=== PATIENT | female | born 1965 | race Caucasian/White ===

== ENCOUNTER → 2024-06-23 07:43 | Outpatient (REF) | payer BC, SELFPAY | LOC: HWWDC 07:43 | PROVIDERS: ATTENDING PHYSICIAN Obstetrics & Gynecology Gynecology; FAMILY PHYSICIAN Family Medicine | DX: Z78.0 Asymptomatic menopausal state (principal); Z12.31 Encounter for screening mammogram for malignant neoplasm of breast | CPT/HCPCS: 77063; 77067; 77080 ==

== ENCOUNTER 2024-10-03 06:17 | Day surgery (SDC) | payer BC, SELFPAY | END 2024-10-03 10:12 | disposition home or self-care (01) | LOC: GI 06:17 | PROVIDERS: ATTENDING PHYSICIAN Internal Medicine; FAMILY PHYSICIAN Family Medicine | DX: Z12.11 Encounter for screening for malignant neoplasm of colon (principal); D12.4 Benign neoplasm of descending colon; K63.5 Polyp of colon; K62.1 Rectal polyp | CPT/HCPCS: 45385; 45380; 88305 ==

== ENCOUNTER → 2025-06-27 07:44 | Outpatient (REF) | payer BC, SELFPAY | LOC: WDC 07:44 | PROVIDERS: ATTENDING PHYSICIAN Obstetrics & Gynecology Gynecology; FAMILY PHYSICIAN Family Medicine | DX: Z12.31 Encounter for screening mammogram for malignant neoplasm of breast (principal) | CPT/HCPCS: 77063; 77067 ==